=== PATIENT | male | born 1950 | race American Indian/Alaskan Native ===

== ENCOUNTER 2017-05-15 05:07 | Inpatient (IN) | payer MEDICARE ==
--- NOTE | 2017-05-15 07:15 | Emergency Department Report ---
ED Chest Pain HPI - General Chief Complaint: Chest Pain Stated Complaint: CP Time Seen by Provider: 05/15/17 07:08 Source: patient, EMS Mode of arrival: Stretcher Limitations: No Limitations - History of Present Illness Initial Comments: The patient is a somewhat anxious 65-year-old gentleman that states he has a 65 % blockage in a coronary artery. He presents with a full spectrum of typical ischemic chest pain symptoms to include substernal chest pressure nausea tingling in the arms and sweaty. At this time he is not complaining of chest pain. It's been intermittent for the past at least 24 hours. Review of his cardiac catheter report 10/11/2013 indicates an EF of 60% and an LAD with a 40- 50% lesion in the midportion of the origin of the diagonal branch. No other significant abnormality was found. I do not know if this is patient's last cardiac catheterization but it appears to be in the last one we have here on record. In any case he was judged to have nonobstructive coronary artery disease and medical management was recommended. The patient states he was given nitroglycerin for aspirin en route to this hospital. He appears to be stating that the nitroglycerin was of benefit. He is not taking nitroglycerin at home. He is somewhat of a poor historian. MD Complaint: chest pain Onset: during rest Pain Location: substernal Severity: moderate Quality: pressure Consistency: intermittent Improves With: nothing - Related Data On Oral Contraceptives: No Home Medications Medication Instructions Recorded Confirmed Last Taken Atorvastatin [Lipitor] 1 tab PO QHS 10/09/13 10/09/13 Unknown Insulin Aspart Prot/Aspart(Nf) 40 units SUB-Q BID 10/09/13 10/09/13 Unknown [NovoLOG Mix 70/30 VIAL] Losartan [Cozaar] 1 tab PO QHS 10/09/13 10/09/13 Unknown Zolpidem [Ambien] 1 tab PO QHS 10/09/13 10/09/13 Unknown Previous Rx's Medication Instructions Recorded Last Taken Type Sertraline [Zoloft] 25 mg PO QDAY #30 tablet 10/11/13 Unknown Rx Allergies Allergy/AdvReac Type Severity Reaction Status Date / Time aspirin AdvReac Vomiting Verified 04/17/16 21:28 ibuprofen AdvReac Nausea Verified 04/17/16 21:29 Heart Score - HEART Score History: Moderately suspicious EKG: Non-specific Age: 45-65 Risk factors: > 3 risk factors or hx of atherosclerotic disease Troponin: < normal limit HEART Score: 5 ED Review of Systems ROS: Stated complaint: CP Other details as noted in HPI Constitutional: denies: chills, fever Eyes: denies: eye pain, eye discharge, vision change ENT: denies: ear pain, throat pain Respiratory: shortness of breath. denies: cough, wheezing Cardiovascular: chest pain. denies: palpitations Endocrine: no symptoms reported Gastrointestinal: nausea. denies: abdominal pain, diarrhea Genitourinary: denies: urgency, dysuria Musculoskeletal: denies: back pain, joint swelling, arthralgia Skin: denies: rash, lesions Neurological: headache. denies: weakness, paresthesias Psychiatric: denies: anxiety, depression Hematological/Lymphatic: denies: easy bleeding, easy bruising ED Past Medical Hx - Past Medical History Previous Medical History?: Yes Hx Hypertension: Yes Hx Heart Attack/AMI: Yes Hx Diabetes: Yes (IDDM) - Social History Smoking Status: Never Smoker Substance Use Type: None - Medications Home Medications: Home Medications Medication Instructions Recorded Confirmed Last Taken Type Atorvastatin [Lipitor] 1 tab PO QHS 10/09/13 10/09/13 Unknown History Insulin Aspart Prot/Aspart(Nf) 40 units SUB-Q BID 10/09/13 10/09/13 Unknown History [NovoLOG Mix 70/30 VIAL] Losartan [Cozaar] 1 tab PO QHS 10/09/13 10/09/13 Unknown History Zolpidem [Ambien] 1 tab PO QHS 10/09/13 10/09/13 Unknown History Sertraline [Zoloft] 25 mg PO QDAY #30 tablet 10/11/13 Unknown Rx ED Physical Exam - General Limitations: No Limitations General appearance: alert, in no apparent distress - Head Head exam: Present: atraumatic, normocephalic - Eye Eye exam: Present: normal appearance. Absent: scleral icterus - ENT ENT exam: Present: mucous membranes moist - Neck Neck exam: Present: normal inspection - Respiratory Respiratory exam: Present: normal lung sounds bilaterally. Absent: respiratory distress - Cardiovascular Cardiovascular Exam: Present: regular rate, normal rhythm. Absent: systolic murmur, diastolic murmur, rubs, gallop - GI/Abdominal GI/Abdominal exam: Present: soft, normal bowel sounds. Absent: distended, tenderness, guarding, rebound, rigid - Rectal Rectal exam: Present: deferred - Extremities Exam Extremities exam: Present: normal inspection - Back Exam Back exam: Present: normal inspection - Neurological Exam Neurological exam: Present: alert, oriented X3, CN II-XII intact. Absent: motor sensory deficit - Psychiatric Psychiatric exam: Present: normal affect, normal mood - Skin Skin exam: Present: warm, dry, intact, normal color. Absent: rash ED Course Vital Signs 05/15/17 05/15/17 05/15/17 05:30 05:45 05:47 Temperature 99 F Pulse Rate 80 80 78 Respiratory 14 15 15 Rate Blood Pressure 107/62 100/53 Blood Pressure [Left] O2 Sat by Pulse 94 95 Oximetry 05/15/17 05/15/17 05/15/17 05:51 06:00 06:15 Temperature Pulse Rate 71 73 Respiratory 15 23 20 Rate Blood Pressure 107/62 124/40 Blood Pressure [Left] O2 Sat by Pulse 93 94 Oximetry 05/15/17 05/15/17 05/15/17 06:30 06:46 08:00 Temperature Pulse Rate 78 81 71 Respiratory 23 15 14 Rate Blood Pressure 124/40 115/37 93/42 Blood Pressure [Left] O2 Sat by Pulse 95 97 94 Oximetry 05/15/17 05/15/17 08:06 09:11 Temperature 98.4 F Pulse Rate 75 Respiratory 13 14 Rate Blood Pressure Blood Pressure 114/50 [Left] O2 Sat by Pulse 95 95 Oximetry - Reevaluation(s) Reevaluation #1: Patient remained clinically stable. He was admitted by the hospitalists for further care and evaluation. 05/15/17 09:27 CECIL score - Cecil Score Age > 65: (0) No Aspirin use within the Past 7 Days: (0) No 3 or more CAD Risk Factors: (0) No 2 or more Angina events in past 24 hrs: (1) Yes Known CAD with more than 50% Stenosis: (1) Yes Elevated Cardiac Markers: (0) No ST Deviation Greater than 0.5mm: (0) No CECIL Score: 2 ED Medical Decision Making - EKG Data -: EKG Interpreted by Dc EKG shows normal: sinus rhythm, axis, intervals, QRS complexes, ST-T waves Rate: normal - EKG Data Interpretation: normal EKG - Radiology Data interpreted by me: Chest x-ray shows no acute process Critical care attestation.: If time is entered above; I have spent that time in minutes in the direct care of this critically ill patient, excluding procedure time. ED Disposition Clinical Impression: Diabetes 1.5, managed as type 2 Chest pain Qualifiers: Chest pain type: unspecified Qualified Code(s): R07.9 - Chest pain, unspecified Disposition: 09 OP ADMIT IP TO THIS HOSP Is pt being admited?: Yes Does the pt Need Aspirin: No (given by EMS) Condition: Stable Instructions: Chest Pain (ED), Diabetes Mellitus Type 2 in Adults (ED) Referrals: JUNG RUBIO MD [Primary Care Provider] - 3-5 Days
[2017-05-15] MEDS ORDERED: D50W (25GM) Syringe IV PRN (08:50)
--- NOTE | 2017-05-15 08:58 | History and Physical Report ---
History of Present Illness Date of examination: 05/15/17 Chief complaint: Chest pain History of present illness: 66 year old [place]i male with past medical history significant for GERD, hypertension, diabetes mellitus, hyperlipidemia, CAD presented to the emergency department complaining of sided sharp chest pain started around 8 PM last night. Pain is 10 out of 10 in intensity, with no radiation, associated with shortness of breath, diaphoresis. No aggravating or relieving factors identified. Patient has occasional cough, due to recent cold. Patient denied palpitation, leg swelling. Patient said he had previously admitted to this hospital and cardiac cath was done showed 65% stenosis, and advised to have medical management. REVIEW OF SYSTEMS: GENERAL: no weight change, no fatigue, no fever HEAD: no head ache EYES: no blurry vision, no acute visual loss EARS: no hearing loss, no discharge, no earache NOSE: no stuffiness, no sneezing, no discharge MOUTH, THROAT AND NECK: no bleeding gums, no sore throat, no swollen neck CARDIAC: As stated in the HPI RESPIRATORY: no shortness of breath, no wheeze, no cough, no sputum, no hemoptysis, no asthma GI: no decreased appetite, no nausea, no vomiting, no dysphagia, no diarrhea, no constipation, no abdominal pain URINARY: no change in frequency, no urgency, no polyuria, no hematuria, no incontinence MUSCULOSKELETAL: no muscle weakness, no pain, no joint stiffness NEUROLOGIC: no loss of sensation/numbness, no tingling, no tremors, no weakness/ paralysis HEMATOLOGIC: no anemia, no easy bruising SKIN: no rashes ENDOCRINE: no heat/cold intolerance, no polyuria, no polydipsia, no thyroid problems, + diabetes PSYCHIATRIC: no anxiety, no depression, no suicidal ideations Past History Past Medical History: CAD, diabetes, GERD, hypertension Past Surgical History: No surgical history Social history: full code. denies: smoking, alcohol abuse, prescription drug abuse, IV drug use Family history: CAD (Father) Medications and Allergies Allergies Allergy/AdvReac Type Severity Reaction Status Date / Time aspirin AdvReac Vomiting Verified 04/17/16 21:28 ibuprofen AdvReac Nausea Verified 04/17/16 21:29 Home Medications Medication Instructions Recorded Confirmed Last Taken Type Atorvastatin [Lipitor] 1 tab PO QHS 10/09/13 10/09/13 Unknown History Insulin Aspart Prot/Aspart(Nf) 40 units SUB-Q BID 10/09/13 10/09/13 Unknown History [NovoLOG Mix 70/30 VIAL] Losartan [Cozaar] 1 tab PO QHS 10/09/13 10/09/13 Unknown History Zolpidem [Ambien] 1 tab PO QHS 10/09/13 10/09/13 Unknown History Sertraline [Zoloft] 25 mg PO QDAY #30 tablet 10/11/13 Unknown Rx Active Meds: Active Medications Atorvastatin Calcium (Lipitor) mg PO QHS [facility] Dextrose (D50w (25gm) Syringe) 50 ml IV PRN PRN PRN Reason: Hypoglycemia Heparin Sodium (Porcine) (Heparin) 5,000 unit SUB-Q Q8HR [facility] Potassium Chloride/Sodium Chloride (Ns 0.45/Kcl 20meq) 20 meq in 1,000 mls @ 100 mls/hr IV DIRECT [facility] Insulin Aspart (Novolog) 0 units SUB-Q ACHS [facility] PRN Reason: Protocol Losartan Potassium (Cozaar) mg PO QHS [facility] Miscellaneous Medication (Insulin Aspart Prot/Aspart(Nf)) 40 units SUB-Q BID [facility] Nitroglycerin (Nitrostat) 0.4 mg SL .Q5MIN PRN PRN Reason: Chest Pain Sertraline HCl (Zoloft) 25 mg PO QDAY [facility] Zolpidem Tartrate (Ambien) mg PO QHS [facility] Exam - Physical Exam Narrative exam: Not in cardiopulmonary distress. The patient is obese. Vital signs as documented. Head exam is unremarkable. No scleral icterus . Neck is without jugular venous distension, thyromegaly, or carotid bruits. Lungs are clear to auscultation. Cardiac exam reveals regular rate and Rhythm. First and second heart sounds normal. No murmurs, rubs or gallops. Abdominal exam reveals normal bowel sounds, no masses, no organomegaly and no aortic enlargement. Extremities are nonedematous and both femoral and pedal pulses are normal. SHOT HOLE SHOOTER: Alert and oriented 3. No focal weakness. - Constitutional Vitals: Temp Pulse Resp BP Pulse Ox 98.4 F 75 13 114/50 95 05/15/17 08:06 05/15/17 08:06 05/15/17 08:06 05/15/17 08:06 05/15/17 08:06 Assessment and Plan Assessment and plan: Chest pain - Serial EKG, serial cardiac enzymes, Lexiscan stress test, Pain control - Cardiology consult CAD Diabetes mellitus type II on bed bug exterminator insulin Hypertension HLD GERD - Resume medications DVT prophylaxis - Heparin Disposition - Admit to telemetry floor Advance Directives: Yes VTE prophylaxis?: Chemical Plan of care discussed with patient/family: Yes
[2017-05-15] MEDS ORDERED: MORPHINE IV PRN (09:00)
--- NOTE | 2017-05-15 09:08 | XRay Report ---
Single view chest: History: Chest pain. Findings: Borderline cardiomegaly. Trachea is midline. No consolidation, pneumothorax or pleural effusion. Impression: No acute cardiopulmonary findings.
[2017-05-15] MEDS ORDERED: [UNRECOGNIZED DRUG - OTHER] SUB-Q SCH (10:00)
[2017-05-15] MEDS ORDERED: INSULIN ASPART PROTAMINE SUB-Q SCH (10:00)
[2017-05-15 11:03] LABS: Anion Gap 17 mmol/L; BUN/Creatinine Ratio 21; Blood Urea Nitrogen 15 mg/dL (9-20); Calcium 8.8 mg/dL (8.4-10.2); Carbon Dioxide 24 mmol/L (22-30); Chloride 101.4 mmol/L (98-107); Creatine Kinase 108 units/L (55-170); Creatine Kinase MB 1.4 ng/mL (0.0-4.0); Glucose 161 mg/dL (75-100); Potassium 3.7 mmol/L (3.6-5.0); Sodium 139 mmol/L (137-145)
[2017-05-15 11:19] LABS: Basophils % (Auto) 0.5 % (0.0-1.8); Eosinophils % (Auto) 1.9 % (0.0-4.3); Hematocrit 42.4 % (35.5-45.6); Mean Corpuscular HGB Conc 33 % (32-34); Mean Corpuscular Hemoglobin 29 pg (28-32); Mean Corpuscular Volume 89 fl (84-94); Platelet Count 127 K/mm3 (140-440); Red Blood Count 4.77 M/mm3 (3.65-5.03); Red Cell Distribution Width 13.8 % (13.2-15.2); White Blood Count 7.9 K/mm3 (4.5-11.0)
[2017-05-15] MEDS: NITROSTAT SL PRN ×3 (12:06→23:36)
--- NOTE | 2017-05-15 12:52 | Consultation ---
History of Present Illness Consult date: 05/15/17 Requesting physician: SHELLY ECHOLS Consult reason: chest pain History of present illness: This is 66-year-old packs a gentleman with hypertension diabetes cholesterol who yesterday started having midsternal chest pressure no radiating with associated nausea vomiting patient states been having coughing with nonproductive no fever no chills causing some chest pain also. Patient denies any abdominal pain denies any fever or chills but was having vomiting constant yesterday. Patient states feeling better some mild chest pain with deep breathing. Patient states last week was feeling normal without any symptomology and was exerting himself without any exertional shortness of breath or chest pain Past History Past Medical History: CAD, diabetes, GERD, hypertension Past Surgical History: No surgical history Social history: full code. denies: smoking, alcohol abuse, prescription drug abuse, IV drug use Family history: CAD (Father) Medications and Allergies Allergies Allergy/AdvReac Type Severity Reaction Status Date / Time aspirin AdvReac Vomiting Verified 04/17/16 21:28 ibuprofen AdvReac Nausea Verified 04/17/16 21:29 Home Medications Medication Instructions Recorded Confirmed Last Taken Type Gabapentin [Neurontin] 300 mg PO QSHIFT 05/15/17 05/15/17 Unknown History Insulin Aspart [Novolog] 20 unit SQ AC 05/15/17 05/15/17 Unknown History Insulin Detemir [Levemir] 80 units SUB-Q QHS 05/15/17 05/15/17 Unknown History Simvastatin [Zocor TAB] 40 mg PO QHS 05/15/17 05/15/17 Unknown History Zolpidem [Ambien] 10 mg PO QHS 05/15/17 05/15/17 Unknown History Active Meds: Active Medications Atorvastatin Calcium (Lipitor) 40 mg PO QHS [facility] Dextrose (D50w (25gm) Syringe) 50 ml IV PRN PRN PRN Reason: Hypoglycemia Heparin Sodium (Porcine) (Heparin) 5,000 unit SUB-Q Q8HR [facility] Potassium Chloride/Sodium Chloride (Ns 0.45/Kcl 20meq) 20 meq in 1,000 mls @ 100 mls/hr IV DIRECT [facility] Insulin Aspart (Novolog) 0 units SUB-Q ACHS [facility] PRN Reason: Protocol Insulin Human Isoph/Insulin Regular (Novolin 70/30) 40 unit SUB-Q BID [facility] Losartan Potassium (Cozaar) 50 mg PO QHS [facility] Morphine Sulfate (Morphine) 2 mg IV Q4H PRN PRN Reason: Pain, Moderate (4-6) Nitroglycerin (Nitrostat) 0.4 mg SL .Q5MIN PRN PRN Reason: Chest Pain Last Admin: 05/15/17 12:11 Dose: 0.4 mg Pantoprazole Sodium (Protonix) 40 mg PO QDAY [facility] Sertraline HCl (Zoloft) 25 mg PO QDAY [facility] Zolpidem Tartrate (Ambien) 10 mg PO QHS [facility] Review of Systems All systems: negative (hpi) Physical Examination Vital Signs Pulse Resp 80 14 05/15/17 05:30 05/15/17 05:30 General appearance: no acute distress, well-nourished HEENT: Positive: PERRL, Mucus Membranes Moist Neck: Positive: neck supple, trachea midline Cardiac: Positive: Reg Rate and Rhythm, S1/S2. Negative: Audible Murmur Lungs: Positive: clear to auscultation, Normal Breath Sounds Neuro: Positive: Grossly Intact Abdomen: Positive: Soft, Active Bowel Sounds. Negative: Tender, Distended Male genitourinary: Positive: normal Skin: Positive: Clear Incision: Cardiac Cath Site Musculoskeletal: No Pain, Normal Range of Motion Extremities: Present: normal. Absent: edema Results 05/15/17 11:02 05/15/17 10:35 Cardiac Enzymes 05/15/17 Range/Units 10:35 CK-MB (CK-2) 1.4 (0.0-4.0) ng/mL CBC 05/15/17 Range/Units 11:02 WBC 7.9 (4.5-11.0) K/mm3 RBC 4.77 (3.65-5.03) M/mm3 Hgb 14.0 (11.8-15.2) gm/dl Hct 42.4 (35.5-45.6) % Plt Count 127 L (140-440) K/mm3 Lymph # 1.5 (1.2-5.4) K/mm3 [place] # 1.0 H (0.0-0.8) K/mm3 Eos # 0.2 (0.0-0.4) K/mm3 Baso # 0.0 (0.0-0.1) K/mm3 Comprehensive Metabolic Panel 12/23/17 Range/Units 10:35 Sodium 139 (137-145) mmol/L Potassium 3.7 (3.6-5.0) mmol/L Chloride 101.4 (98-107) mmol/L Carbon Dioxide 24 (22-30) mmol/L BUN 15 (9-20) mg/dL Creatinine 0.7 L (0.8-1.5) mg/dL Glucose 161 H (75-100) mg/dL Calcium 8.8 (8.4-10.2) mg/dL - Imaging and Cardiology Cardiac cath: report reviewed (2013 lt main patent, lad 40-50%, lcx patent rca patent normal lv function ) EKG interpretations - Telemetry EKG Rhythm: Sinus Rhythm (normal sinus rhythm nonspecific ST-T is) Assessment and Plan Chest pain possible GI Known coronary disease Hypertension Diabetes Hyperlipidemia Obesity Recommend start PPI, continue a statin will do Lexiscan times stress test in a.m. if cardiac enzymes continue to be negative and also echocardiogram
[2017-05-15] MEDS: ZOLOFT PO SCH (13:55)
[2017-05-15] MEDS: PROTONIX PO SCH (13:56)
[2017-05-15] MEDS: HEPARIN SUB-Q SCH ×2 (13:56→22:50)
[2017-05-15] MEDS: NOVOLOG SUB-Q SCH ×3 (13:56→22:50)
[2017-05-15 14:28] LABS: Creatine Kinase MB 1.5 ng/mL (0.0-4.0)
[2017-05-15] MEDS: NS 0.45/KCL 20MEQ 20 MEQ/1,000 ML BAG IV SCH (14:29)
[2017-05-15] MEDS: FLONASE NS SCH (17:23)
[2017-05-15] MEDS ORDERED: COZAAR PO SCH (22:00)
[2017-05-15] MEDS ORDERED: AMBIEN PO SCH (22:00)
[2017-05-16] MEDS: HEPARIN SUB-Q SCH (06:55)
[2017-05-16] MEDS: NS 0.45/KCL 20MEQ 20 MEQ/1,000 ML BAG IV SCH (07:20)
[2017-05-16] MEDS: NOVOLOG SUB-Q SCH ×2 (08:05→12:26)
[2017-05-16 08:19] LABS: Basophils % (Auto) 0.8 % (0.0-1.8); Eosinophils % (Auto) 2.2 % (0.0-4.3); Hematocrit 40.8 % (35.5-45.6); Hemoglobin 13.6 gm/dl (11.8-15.2); Mean Corpuscular HGB Conc 33 % (32-34); Mean Corpuscular Hemoglobin 30 pg (28-32); Mean Corpuscular Volume 89 fl (84-94); Platelet Count 110 K/mm3 (140-440); White Blood Count 7.1 K/mm3 (4.5-11.0)
[2017-05-16] MEDS ORDERED: LEXISCAN IV ONE ×2 (08:21→08:25)
[2017-05-16 08:27] LABS: Anion Gap 18 mmol/L; BUN/Creatinine Ratio 19; Blood Urea Nitrogen 13 mg/dL (9-20); Calcium 8.1 mg/dL (8.4-10.2); Carbon Dioxide 22 mmol/L (22-30); Chloride 100.8 mmol/L (98-107); Cholesterol 97 mg/dL (50-199); Glucose 152 mg/dL (75-100); HDL Cholesterol 31 mg/dL (40-59); LDL Cholesterol,Direct 48 mg/dL (50-130); Sodium 137 mmol/L (137-145); Triglycerides 92 mg/dL (2-149)
--- NOTE | 2017-05-16 11:25 | Progress Note ---
Assessment and Plan Chest pain possible GI coronary disease Hypertension Diabetes Hyperlipidemia Obesity In view of normal myocardial perfusion scan no significant ischemia and echocardiogram normally function with mild aortic regurgitation mild mitral regurgitation mild tricuspid regurgitation patient's chest pain is probably GI in nature continue TPI and may be discharged from cardiac vesicle pointed to continue home medications and follow-up with cardiology as an outpatient for risk factor modification and primary care doctor Subjective Date of service: 05/16/17 Principal diagnosis: chest pain Interval history: pt chest pain is better Objective Vital Signs Temp Pulse Resp BP BP Pulse Ox 05/16/17 05:12 98.3 F 75 17 131/53 94 05/16/17 02:14 89 05/16/17 01:18 99.0 F 79 20 113/60 97 05/15/17 23:36 150/68 05/15/17 23:07 87 150/68 05/15/17 21:48 97 05/15/17 20:51 99.8 F H 89 20 150/68 97 05/15/17 20:47 99.8 F H 88 20 150/68 97 05/15/17 15:42 98.9 F 79 18 134/62 99 05/15/17 12:11 86 05/15/17 12:06 78 126/65 - Physical Examination General: No Apparent Distress HEENT: Positive: PERRL, Mucus Membranes Moist Neck: Positive: neck supple, trachea midline Cardiac: Positive: Reg Rate and Rhythm Lungs: Positive: clear to auscultation Neuro: Positive: Grossly Intact Abdomen: Positive: Soft, Active Bowel Sounds. Negative: Tender, Distended Skin: Positive: Clear Incision: Cardiac Cath Site Musculoskeletal: No Pain, Normal Range of Motion Extremities: Present: normal. Absent: edema - Labs and Meds Cardiac Enzymes 05/15/17 Range/Units 13:50 CK-MB (CK-2) 1.5 (0.0-4.0) ng/mL Lipids 05/16/17 Range/Units 07:14 Triglycerides 92 (2-149) mg/dL Cholesterol 97 (50-199) mg/dL HDL Cholesterol 31 L (40-59) mg/dL Cholesterol/HDL Ratio 3.12 % CBC 05/16/17 Range/Units 07:14 WBC 7.1 (4.5-11.0) K/mm3 RBC 4.60 (3.65-5.03) M/mm3 Hgb 13.6 (11.8-15.2) gm/dl Hct 40.8 (35.5-45.6) % Plt Count 110 L (140-440) K/mm3 Lymph # 1.6 (1.2-5.4) K/mm3 Person # 1.1 H (0.0-0.8) K/mm3 Eos # 0.2 (0.0-0.4) K/mm3 Baso # 0.1 (0.0-0.1) K/mm3 Comprehensive Metabolic Panel 05/16/17 Range/Units 07:14 Sodium 137 (137-145) mmol/L Potassium 4.0 (3.6-5.0) mmol/L Chloride 100.8 (98-107) mmol/L Carbon Dioxide 22 (22-30) mmol/L BUN 13 (9-20) mg/dL Creatinine 0.7 L (0.8-1.5) mg/dL Glucose 152 H (75-100) mg/dL Calcium 8.1 L (8.4-10.2) mg/dL - Imaging and Cardiology Pharmacologic stress test: report reviewed (normal myocardial perfusion no ischemia noted ef >65%) Echo: report reviewed (normal lv funciton, mild ai mild mr and mild tr and normal rvsp ) Cardiac cath: report reviewed (2013 lt main patent, lad 40-50%, lcx patent rca patent normal lv function ) - Telemetry EKG Rhythm: Sinus Rhythm
[2017-05-16] MEDS: PROTONIX PO SCH (11:55)
[2017-05-16] MEDS: ZOLOFT PO SCH (11:55)
[2017-05-16] MEDS: FLONASE NS SCH (11:56)
--- NOTE | 2017-05-16 12:01 | Discharge Summary ---
Providers - Providers Date of Admission: 05/15/17 08:43 Attending physician: DANA ROMERO MD 05/15/17 Consult to Cardiac Rehabilitation [CONS] Routine Reason For Exam: Phase 1 05/15/17 08:44 Consult to Physician [CONS] Routine Consulting Provider: ALBERT MICHAEL Reason For Exam: chest pain Place consult to:: Cardiology Notified:: [place]or Phone number called:: on unit Was contact made?: Yes Time called:: 10:23 Primary care physician: JUNG RUBIO Hospitalization Reason for admission: chest pain Condition: Stable Hospital course: 66 year old [place] male with past medical history significant for GERD, hypertension, diabetes mellitus, hyperlipidemia, CAD presented to the emergency department complaining of sided sharp chest pain started around 8 PM last night. Pain is 10 out of 10 in intensity, with no radiation, associated with shortness of breath, diaphoresis. No aggravating or relieving factors identified. Patient has occasional cough, due to recent cold. Patient denied palpitation, leg swelling. Patient said he had previously admitted to this hospital and cardiac cath was done showed 65% stenosis, and advised to have medical management. On arrival the patient proceeded to have a stress test which was read as normal with no significant ischemia ejection fraction demonstrated normal on echocardiogram except for mild aortic regurgitation and mild regurgitation and mild tricuspid regurgitation. Cardiology did evaluate and recommended that this could be secondary to GERD we did advise the patient for follow-up with primary care physician and possibly GI as he does have a history of GERD Pepcid medications were continued. He is clinically stable and symptom-free at this time for discharge. Chest pain secondary to GERD coronary disease Hypertension Diabetes Hyperlipidemia Obesity GERD Disposition: - TO HOME OR SELFCARE Time spent for discharge: 35 mins Core Measure Documentation - Palliative Care Palliative Care/ Comfort Measures: Not Applicable - Core Measures Any of the following diagnoses?: none - VTE Discharge Requirements Deep Vein Thrombosis/Pulmonary Embolism Present on Admission: No Exam - Physical Exam Narrative exam: VITAL SIGNS: Reviewed. GENERAL: The patient appeared well nourished and normally developed. Vital signs as documented. HEAD: No signs of head trauma. EYES: Pupils are equal. Extraocular motions intact. EARS: Hearing grossly intact. MOUTH: Oropharynx is normal. NECK: No adenopathy, no JVD. CHEST: Chest with clear breath sounds bilaterally. No wheezes, rales, or rhonchi. CARDIAC: Regular rate and rhythm. S1 and S2, without murmurs, gallops, or rubs. VASCULAR: No Edema. Peripheral pulses normal and equal in all extremities. ABDOMEN: Soft, without detectable tenderness. No sign of distention. No rebound or guarding, and no masses palpated. Bowel Sounds normal. MUSCULOSKELETAL: Good range of motion of all major joints. Extremities without clubbing, cyanosis or edema. NEUROLOGIC EXAM: Alert and oriented x 3. No focal sensory or strength deficits. Speech normal. Follows commands. PSYCHIATRIC: Mood normal. SKIN: No rash or lesions. - Constitutional Vitals: Temp Pulse Resp BP Pulse Ox 98.3 F 75 17 131/53 94 05/16/17 05:12 05/16/17 05:12 05/16/17 05:12 05/16/17 05:12 05/16/17 05:12 Plan Activity: advance as tolerated, fall precautions Diet: low cholesterol, diabetic Special Instructions: record daily weights, record daily BP diary, record blood sugar diary Follow up with: JUNG RUBIO MD [Primary Care Provider] - 3-5 Days HAROON MARIEE MD [Staff Physician] - 7 Days Prescriptions: Pantoprazole [Protonix TAB] 40 mg PO QDAY #30 tablet
[2017-05-16 13:09] VITALS: BP 121/65
--- NOTE | 2017-05-16 21:12 | Treadmill Report ---
NUCLEAR PERFUSION STUDY READING PHYSICIAN: Lucio Perdomo MD IMAGING PROTOCOL: The patient received 10 mCi of Technetium 99m Tetrofosmin for resting image and 28 mCi of Technetium 99m Tetrofosmin for stress imaging. The imaging for the whole procedure was completed 30-90 minutes following the initial injection of Technetium 99m tetrofosmin. The SPECT imaging in the 180 degree arc was performed in the right anterior oblique projection. Computerized reconstruction of the images was performed for analysis. IMAGING RESULTS: Normal cavity size from stress to rest. Normal distribution of radionuclide in the anterior, inferior, septal, and apical regions. Gated SPECT, EF 74% with no wall motion abnormality. The patient infused Lexiscan with no EKG changes. SUMMARY: 1. Negative Lexiscan EKG. 2. Normal rest and stress myocardial perfusion scan. No stress ischemia. No wall motion abnormality. Gated SPECT, EF greater than 65%. JOB# [id number] [facility]/[place]
== END 2017-05-16 13:24 | disposition home or self-care (01) | DRG 392 ==
LOC: ED 05:07 → 4A 08:43
PROVIDERS: ADMIT Internal Medicine; ATTEND Internal Medicine
DX: K21.9 Gastro-esophageal reflux disease without esophagitis (principal); I10 Essential (primary) hypertension; E11.9 Type 2 diabetes mellitus without complications; E78.5 Hyperlipidemia, unspecified; E66.9 Obesity, unspecified; I25.10 Atherosclerotic heart disease of native coronary artery without angina pectoris; Z82.49 Family history of ischemic heart disease and other diseases of the circulatory system; Z88.6 Allergy status to analgesic agent; Z79.4 Long term (current) use of insulin; Z88.8 Allergy status to other drugs, medicaments and biological substances; Z68.30 Body mass index [BMI] 30.0-30.9, adult
CPT/HCPCS: 36415; 71010; 78452; 80048; 80061; 82550; 82553; 82962; 83036; 83735; 84484; 85025; 87040; 93005; 93010; 93017; 93306; A9270-GY; A9502; J1644; J1815; J2785

== ENCOUNTER 2021-09-02 16:16 | Outpatient (CLI) | payer MEDICARE ==
[2021-09-02 17:00] LABS: BUN/Creatinine Ratio 21; Blood Urea Nitrogen 21 mg/dL (9-20); Calcium 8.5 mg/dL (8.4-10.2); Hemolysis Index 5
== END 2021-09-02 16:17 | disposition home or self-care (01) ==
LOC: LAB 16:16
PROVIDERS: ATTEND Internal Medicine Cardiovascular Disease
DX: I10 Essential (primary) hypertension (principal)
CPT/HCPCS: 36415; 80048